=== PATIENT | male | born 1955 | race African-American/Black ===

== ENCOUNTER 2016-11-05 12:46 | Observation (INO) | payer MEDICARE, MEDICAID ==
[2016-11-05] MEDS ORDERED: Diabetic Tussin 200 MG/10 ML UDCUP PO PRN (15:23)
[2016-11-05] MEDS ORDERED: Bisacodyl 5 MG TAB PO PRN (15:23)
[2016-11-05] MEDS ORDERED: Mag-Al 1200 mg/1200 mg/30 ML UDCUP PO PRN (15:23)
[2016-11-05] MEDS ORDERED: Calcium Carbonate 500 MG ChewTAB PO PRN (15:23)
[2016-11-05] MEDS ORDERED: Loratadine 10 MG TAB PO PRN (15:23)
[2016-11-05] MEDS ORDERED: cloNIDine HCl 0.1 MG TAB PO PRN (15:23)
[2016-11-05] MEDS ORDERED: traMADol HCl 50 MG TAB PO PRN (15:23)
[2016-11-05] MEDS ORDERED: Lorazepam 1 MG TAB PO PRN (15:23)
[2016-11-05] MEDS ORDERED: Benzonatate 100 MG CAP PO PRN (15:23)
[2016-11-05] MEDS ORDERED: Ondansetron HCl/PF 4 MG/2 ML Vial IVP PRN (15:23)
[2016-11-05] MEDS ORDERED: HYDROcodone/Acetaminophen 5/325 mg Tablet PO PRN (15:23)
[2016-11-05] MEDS ORDERED: Nitroglycerin 0.4 MG TAB (25 Tab Bottle) SL PRN (15:23)
[2016-11-05] MEDS ORDERED: Senokot 8.6 MG TAB PO PRN (15:23)
[2016-11-05] MEDS ORDERED: Acetaminophen 325 MG TAB PO PRN (15:23)
[2016-11-05 16:36] LABS: Troponin I 0.018 ng/mL (< 0.028)
[2016-11-05 17:01] VITALS: BMI 38.8
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
--- NOTE | 2016-11-05 19:14 | ULT ---
BILATERAL CAROTID DOPPLER ULTRASOUND: 11/05/16 HISTORY: TIA. COMPARISON: None. TECHNIQUE: Real time tovar scale, color doppler and spectral analysis of the extracranial carotid arteries and v ertebral arteries is performed with the linear transducer. FINDINGS: No elevated peak systolic velocities. Mild atherosclerotic plaque. Right ICA/CCA ratio is 0.73 and left ICA/CCA ratio is 0.93. Antegrade flow both vertebral arteries. IMPRESSION: No hemodynamically significant stenosis. POS: [facility]
[2016-11-05] MEDS ORDERED: Atorvastatin Calcium 20 MG TAB PO SCH (21:00)
[2016-11-06 05:26] LABS: #Basophils 0.1 thou/uL (0.0-0.2); #Eosinphils 0.2 thou/uL (0.0-0.7); #Lymphocytes 3.5 thou/uL (1.20-3.40); #Monocytes 0.5 thou/uL (0.11-0.59); #Neutrophils 3.6 thou/uL (1.40-6.50); %Basophils 0.7 % (0.0-1.0); %Eosinophils 3.1 % (0.0-10.0); %Lymphocytes 44.4 % (21.0-51.0); %Monocytes 6.5 % (0.0-10.0); Hematocrit 42.7 % (42.0-52.0); Mean Platelet Volume 9.2 fL (7.4-10.4); White Blood Cell (WBC) Count 7.9 thou/uL (4.8-10.8)
[2016-11-06 05:57] LABS: Anion Gap 12 mmol/L (10-20); BUN (Urea Nitrogen) 12 mg/dL (8.4-25.7); Calc. Creatinine Clearance 106 mL/min (70-130); Calcium 9.7 mg/dL (7.8-10.44); Carbon Dioxide 28 mmol/L (23-31); Chloride 106 mmol/L (98-107); Estimated GFR-MDRD 89
[2016-11-06] MEDS ORDERED: Aspirin 325 mg Enteric Coated Tablet PO SCH (09:00)
[2016-11-06] MEDS ORDERED: Enoxaparin Sodium 40 MG/0.4 ML SYRINGE SC SCH (09:00)
[2016-11-06] MEDS ORDERED: Atenolol 50 MG TAB PO SCH (09:00)
[2016-11-06 11:51] VITALS: BP 169/95
--- NOTE | 2016-11-06 12:29 | MRI ---
NONCONTRAST ENHANCED MRI BRAIN: HISTORY: Tingling hands and feet. Facial tingling on the left. TECHNIQUE: Multiplanar, multisequence, noncontrast enhanced MRI of the brain is obtained. FINDINGS: Images demonstrate normal flow voids seen in the major intracranial vessels. Diffuse cortical atrop hy and deep white matter ischemic changes are seen. No significant evidence of intracranial patholo gy noted. No evidence of areas of diffusion restriction seen. IMPRESSION: Diffuse cortical atrophy and deep white matter ischemic changes; otherwise, unremarkable MRI brain. POS: [facility]
--- NOTE | 2016-11-06 14:46 | PDOC.PN ---
- Subjective Encounter Start Date: 11/06/16 Encounter Start Time: 09:40 Pt seen for followup re: slurred speech. Denies weakness. Denies chest pain, shortness of breath, fever or chills. - Objective MAR Reviewed: Yes Vital Signs & Weight: Vital Signs (12 hours) Temp Pulse Resp BP Pulse Ox 11/06/16 11:50 97.7 F 58 L 16 169/95 H 97 11/06/16 09:18 58 L 11/06/16 08:05 97.5 F L 58 L 12 11/06/16 07:55 98.6 F 60 18 176/92 H 92 L 11/06/16 04:23 97.5 F L 58 L 12 176/97 H 94 L Weight Weight 219 lb 6 oz I&O: 11/05/16 11/06/16 11/07/16 06:59 06:59 06:59 Intake Total 430 Balance 430 Result Diagrams: 11/06/16 04:31 11/06/16 04:31 EKG Reviewed by me: Yes (Tele: NSR) Phys Exam - Physical Examination Obese HEENT: moist MMs Neck: supple, full ROM Respiratory: no wheezing, no rales, no rhonchi, clear to auscultation bilateral Cardiovascular: RRR, no rub Gastrointestinal: soft, non-tender, no distention, positive bowel sounds Musculoskeletal: pulses present Neurological: non-focal, moves all 4 limbs Slurred speech Psychiatric: normal affect Deviation from normal: Oriented to person, not to place or time Skin: no rash, normal turgor, cap refill <2 seconds Dx/Plan (1) TIA (transient ischemic attack) Status: Suspected (2) Hypertension Code(s): I10 - ESSENTIAL (PRIMARY) HYPERTENSION Status: Chronic (3) Dyslipidemia Code(s): E78.5 - HYPERLIPIDEMIA, UNSPECIFIED Status: Chronic (4) Neuropathy Code(s): G62.9 - POLYNEUROPATHY, UNSPECIFIED Status: Chronic - Plan DVT proph w/lovenox * . Continue aspirin, statin. Await MRI brain, 2D echo. Review of Systems - Review of Systems Constitutional: negative: Fever, Chills, Sweats, Weakness, Malaise Respiratory: negative: Cough, Dry, Shortness of Breath, Hemoptysis, SOB with Excertion, Pleuritic Pain, Sputum, Wheezing Cardiovascular: negative: Chest Pain, Palpitations, Orthopnea, Paroxysmal Noc. Dyspnea, Edema, Light Headedness, Other Gastrointestinal: negative: Nausea, Vomiting, Abdominal Pain, Diarrhea, Constipation, Melena, Hematochezia Neurological: Change in Speech. negative: Weakness, Numbness, Incoordination, Confusion, Seizures - Medications/Allergies Allergies/Adverse Reactions: Allergies Allergy/AdvReac Type Severity Reaction Status Date / Time Penicillins Allergy Unverified 11/05/16 15:30 Medications: Current Medications Acetaminophen (Tylenol) 650 mg PO Q4H PRN PRN Reason: Headache/Fever or Pain Hydrocodone Bitart/Acetaminophen (Kent 5/325) 1 tab PO Q4H PRN PRN Reason: Moderate Pain (4-6) Al Hydroxide/Mg Hydroxide (Maalox) 30 ml PO Q6H PRN PRN Reason: Heartburn or Indigestion Aspirin (Ecotrin) 325 mg PO DAILY [facility] Last Admin: 11/06/16 09:18 Dose: 325 mg Atenolol (Tenormin) 100 mg PO DAILY [facility] Last Admin: 11/06/16 09:18 Dose: 100 mg Atorvastatin Calcium (Lipitor) 20 mg PO HS [facility] Last Admin: 11/05/16 21:27 Dose: Not Given Benzonatate (Tessalon) 100 mg PO Q4H PRN PRN Reason: Cough Bisacodyl (Dulcolax) 10 mg PO DAILYPRN PRN PRN Reason: Constipation Calcium Carbonate (Tums) 1,000 mg PO Q4H PRN PRN Reason: Heartburn or Indigestion Clonidine HCl (Catapres) 0.1 mg PO Q4H PRN PRN Reason: Systolic BP > 170 Enoxaparin Sodium (Lovenox) 40 mg SC 0900 [facility] Last Admin: 11/06/16 09:18 Dose: 40 mg Guaifenesin (Robitussin Sf) 200 mg PO Q4H PRN PRN Reason: Cough Hydralazine HCl (Apresoline) 10 mg SLOW IVP Q4H PRN PRN Reason: Systolic BP > 180 Loratadine (Claritin) 10 mg PO DAILYPRN PRN PRN Reason: Sinus Symptoms Lorazepam (Ativan) 1 mg PO Q4H PRN PRN Reason: Anxiety/Agitation Nitroglycerin (Nitrostat) 0.4 mg SL Q5MIN PRN PRN Reason: Chest Pain Ondansetron HCl (Zofran) 4 mg IVP Q6H PRN PRN Reason: Nausea/Vomiting Senna (Senokot) 2 tab PO HSPRN PRN PRN Reason: Constipation Sodium Chloride (Flush - Normal Saline) 10 ml IVF PRN PRN PRN Reason: Saline Flush Tramadol HCl (Ultram) 50 mg PO Q4H PRN PRN Reason: Moderate Pain (4-6)
--- NOTE | 2016-11-06 15:00 | CON ---
DATE OF CONSULTATION: 11/06/2016 NEUROLOGY CONSULTATION IMPRESSION: 1. Probable transient ischemic attack with transient right-sided weakness. 2. Hypertension. 3. Aspirin failure. PLAN: 1. Add Plavix. 2. Patient can be discharged home. HISTORY OF PRESENT ILLNESS: Mr. Bettencourt is a 61-year-old male with past history of hypertension and h yperlipidemia, who was taking aspirin daily, developed right-sided weakness yesterday. His catalina perales noted that his speech was more slurred than usual. He came in for evaluation and had a CT and MRI of the brain, no acute ischemic changes were found. There is some periventricular white matter isc hemic changes bilaterally. Carotid Doppler study did not show any stenosis. He has been a bit hype rtensive with diastolics in the 90s. PAST MEDICAL HISTORY: As listed above. ALLERGIES: PENICILLIN. MEDICATIONS: Include aspirin, clonidine and statin. SOCIAL HISTORY: Positive for alcohol use. REVIEW OF SYSTEMS: No complaint of headache, nausea, vomiting, or vertigo. PHYSICAL EXAMINATION: GENERAL: Generally somewhat overweight, middle age man in no acute distress. VITAL SIGNS: Blood pressure 176/92, pulse 60, respirations 18, temperature 98.6. HEENT: Pupils equal and reactive. Conjunctivae clear. Oropharynx clear. NECK: Supple. EXTREMITIES: No cyanosis. NEUROLOGIC: He is alert and cooperative. His speech is quite difficult to understand, but apparent ly this is baseline. Cranial nerve exam did not show any asymmetries. Motor exam showed symmetric strength without fix or drift. Sensation was subjectively decreased in the right hand. He could st and and walk independently. No abnormal movements were seen. Imaging was reviewed. SUMMARY: This 61-year-old male with hypertension, who has some subjective symptoms on the right patt e, which appeared to be resolving. Given that he was on aspirin, we would start him on Plavix for t he next 6 months. I will be happy to follow up with him as an outpatient.
[2016-11-06] MEDS ORDERED: Clopidogrel Bisulfate 75 MG TAB PO SCH (15:45)
[2016-11-06 16:05] VITALS: TEMP 98.4
--- NOTE | 2016-11-06 17:47 | DIS ---
DATE OF ADMISSION: 11/05/2016 DATE OF DISCHARGE: 11/06/2016 PRIMARY CARE PHYSICIAN: [facility] in [place]. DISCHARGE DIAGNOSES: 1. Probable transient ischemic attack. 2. Dyslipidemia. CONDITION OF PATIENT AT THE TIME OF DISCHARGE: Stable. I assessed Mr. Bettencourt on the day of discharge. He denies any chest pain or shortness of breath. Vit al signs are stable. S1 and S2 are heard, regular. Lungs are clear to auscultation bilaterally. S peech is slurred, patient's family reported that it is at baseline. Otherwise, no significant neuro logic findings. DISCHARGE MEDICATIONS: His home medications were resumed. In addition, Plavix and Lipitor were sta rted. His discharge medications are aspirin 81 mg daily, atenolol 100 mg daily, fenofibrate 134 mg daily, gabapentin 100 mg daily, clonidine 0.1 mg at bedtime, Lipitor 10 mg at bedtime, and Plavix 75 mg daily. HOSPITAL COURSE: Mr. Bettencourt is a pleasant 61-year-old gentleman who was admitted to [facility] on 11/05/2016 for a probable transient ischemic attack. He was seen by Neurology Service. His symptoms resolved, and he did not have recurrence of the symptoms. Carotid Dopplers d id not reveal any hemodynamically significant stenosis. MRI of the brain showed diffuse cortical at rophy and deep white matter ischemic changes. Otherwise, it was an unremarkable study. He also had 2D echocardiogram, which showed ejection fraction of 50%-55%, grade 2/3 diastolic dysfunction, mild mitral regurgitation, and mild tricuspid regurgitation. Laboratory investigations showed triglycer ides 225, cholesterol 247, LDL cholesterol 142, and HDL cholesterol 60. Statin has been added to az s medication regimen. Side effects of statins, including muscle side effects and side effects on th e liver were discussed with the patient. Because his probable transient ischemic attack represented a possible aspirin failure, he has also been started on Plavix. Side effects of Plavix, including risk of bleeding were discussed. The patient and family expressed understanding. They are advised to follow up with primary care provider's office in 3-5 days and with Neurology Ser vice, Dr. Salmeron, in 3-4 weeks. Many thanks for allowing me to participate in your patient's care. Please feel free to contact me w ith any questions or concerns. DISCHARGE DESTINATION: Home.
[2016-11-06] MEDS ORDERED: Atorvastatin Calcium 10 MG TAB PO SCH (21:00)
[2016-11-07] MEDS ORDERED: Clopidogrel Bisulfate 75 MG TAB PO SCH (09:00)
== END 2016-11-06 18:09 | disposition home or self-care (01) ==
LOC: ERS 12:46 → 2SE 15:37
PROVIDERS: ADMIT Internal Medicine; ATTEND Internal Medicine
DX: R53.1 Weakness (principal); R47.81 Slurred speech; I10 Essential (primary) hypertension; E78.5 Hyperlipidemia, unspecified; G62.9 Polyneuropathy, unspecified; Z88.0 Allergy status to penicillin; Z79.82 Long term (current) use of aspirin; Z79.899 Other long term (current) drug therapy; Z98.818 Other dental procedure status
CPT/HCPCS: 70551; 80048; 80061; 84484; 85025; 93306; 93880; 96372; 97139; 99285; G0378; 36415; J1650